=== PATIENT | male | born 1975 | race Caucasian/White ===

== ENCOUNTER → 2019-03-31 | Outpatient (CLI) | payer SELFPAY ==
--- NOTE | 2019-03-31 13:15 | RADIOLOGY REPORT (SQ) ---
EXAM DESCRIPTION: CT LT UPPER EXTREMITY WITHOUT COMPLETED DATE/TIME: 03/31/2019 7:53 am REASON FOR STUDY: S62.025D NONDISPLACED FRACTURE OF MIDDLE THIRD OF NAVICULAR SCAPHOID BONE S62.025D NONDISP FX OF MID 3RD OF NAVIC BONE OF L WRS, 7THD COMPARISON: Radiographs from 01/27/2019. TECHNIQUE: Axial imaging performed through the left wrist with reformatted coronal and sagittal imag ing windowed for bone and soft tissues. Images saved to PACS. 3D IMAGING: Were 3D images as MIP, SSD, or volume rendering performed at the work station? Yes All CT scanners at this facility use dose modulation, iterative reconstruction, and/or weight based d osing when appropriate to reduce radiation dose to as low as reasonably achievable (ALARA). [facility]: Dose Right [facility]: CareDose [facility]: Dose Right [facility]: Teradose 4D [facility]: [employer] LIMITATIONS: None. RADIATION DOSE: CT Rad equipment meets quality standard of care and radiation dose reduction techniq ues were employed. CTDIvol: 4.5 mGy. DLP: 87 mGy-cm. mGy. FINDINGS: SOFT TISSUES: Mild joint effusion. Soft tissues otherwise look generally unremarkable. BONES: No fracture identified. Mid scaphoid fracture appears to have the solidly united and looks he aled. Normal carpal alignment. MINERALIZATION: Normal. OTHER: No other significant finding. IMPRESSION: 1. Healed scaphoid fracture. TECHNICAL DOCUMENTATION: JOB ID: [id number] Quality ID # [id number]: Final reports with documentation of one or more dose reduction techniques (e.g., Au tomated exposure control, adjustment of the mA and/or kV according to patient size, use of iterative reconstruction technique) 2010 [employer]- All Rights Reserved Reading location - IP/workstation name: [email or web address]
== END ==
LOC: RAD 07:44
PROVIDERS: ATTEND Orthopaedic Surgery
DX: S62.025D Nondisplaced fracture of middle third of navicular [scaphoid] bone of left wrist, subsequent encounter for fracture with routine healing (principal); X58.XXXD Exposure to other specified factors, subsequent encounter